=== PATIENT | male | born 1980 | race Caucasian/White ===

== ENCOUNTER 2018-12-14 00:29 | Emergency (ER) | payer MEDICAID ==
[2018-12-14 00:48] VITALS: BP 111/83; PULSE 86; RESP 20; TEMP 97.5; O2SAT 96
[2018-12-14] MEDS ORDERED: Tdap Vaccine 0.5 ml Vial (10-64 yrs) IM ONE ×2 (01:17→01:34)
--- NOTE | 2018-12-14 01:20 | C.PDOC ---
History Of Present Illness 38 year old male states he stepped on a nail that was sticking up out of a 2x4. He yanked it out of his foot and came in for a tetanus vaccination. Chief Complaint (Nursing): Lower Extremity Problem/Injury History Per: Patient History/Exam Limitations: no limitations Onset/Duration Of Symptoms: Hrs Current Symptoms Are (Timing): Still Present Recent travel outside of the [place]: No - Ankle/Foot Description Of Injury: Other (Stepped on nail) Past Medical History Reviewed: Historical Data, Nursing Documentation, Vital Signs Vital Signs: Last Vital Signs Temp 97.5 F L 12/14/18 00:40 Pulse 86 12/14/18 00:40 Resp 20 12/14/18 00:40 BP 111/83 12/14/18 00:40 Pulse Ox 96 12/14/18 00:40 Family History: States: No Known Family Hx - Social History Hx Alcohol Use: Yes Hx Substance Use: No - Immunization History Hx Tetanus Toxoid Vaccination: No Hx Influenza Vaccination: No Hx Pneumococcal Vaccination: No Review Of Systems Constitutional: Negative for: Fever, Chills ENT: Negative for: Mouth Swelling Musculoskeletal: Positive for: Foot Pain. Negative for: Back Pain Skin: Positive for: Other (Puncture wound). Negative for: Rash Neurological: Negative for: Weakness, Numbness Physical Exam - Physical Exam Appears: Well, Non-toxic, No Acute Distress Skin: Warm, No Rash Head: Atraumatic, Normacephalic Eye(s): bilateral: Normal Inspection Extremity: Normal ROM (x4), No Tenderness, Capillary Refill (<2 seconds), No Deformity, No Swelling, Other (Small puncture wound towards ball of foot. No bleeding or foreign body.) Pulses: Left Dorsalis Pedis: Normal, Right Dorsalis Pedis: Normal Neurological/Psych: Oriented x3, Normal Speech, Normal Cranial Nerves (Grossly intact), Normal Motor, Normal Sensation Gait: Steady ED Course And Treatment O2 Sat by Pulse Oximetry: 96 (Room air) Pulse Ox Interpretation: Normal Medical Decision Making Medical Decision Making: Tetanus vaccination administered and started prophylactically on cipro. Disposition Counseled Patient/Family Regarding: Diagnosis, Need For Followup, Rx Given - Disposition Disposition: HOME/ ROUTINE Disposition Time: 01:20 Condition: STABLE Prescriptions: Ciprofloxacin HCl [Cipro] 500 mg PO BID 5 Days tablet Instructions: Wound Care (DC) Forms: [facility] (Tanzanian), General Discharge Instructions - Clinical Impression Clinical Impression: Puncture wound of foot excluding toes without complication - PA / MEDICAL CASE MANAGER / Resident Statement MD/DO has reviewed & agrees with the documentation as recorded. - Scribe Statement The provider has reviewed the documentation as recorded by the Scribe Antonio Tong All medical record entries made by the Scribe were at my direction and personally dictated by me. I have reviewed the chart and agree that the record accurately reflects my personal performance of the history, physical exam, medical decision making, and the department course for this patient. I have also personally directed, reviewed, and agree with the discharge instructions and disposition.
== END 2018-12-14 01:50 | disposition home or self-care (01) ==
LOC: C.ER 00:29
DX: S91.339A Puncture wound without foreign body, unspecified foot, initial encounter (principal); W45.0XXA Nail entering through skin, initial encounter; Z23 Encounter for immunization